=== PATIENT | female | born 1980 | race Caucasian/White ===

== ENCOUNTER 2017-07-31 02:18 | Inpatient (IN) | payer OTHER, MEDICAID ==
[~2017-07-31] VITALS: Ht 172.7 cm; Wt 103.0 kg
[~2017-07-31 02:18] MED LIST: ALPRAZOLAM 0.50.5 M1 PO; ALPRAZOLAM ER1 MG PO; ALPRAZOLAM2 MG PO; AMBIEN 10 MG TA10 MG PO; AMBIEN 5 MG TABL5 M1 PO; AMITRIPTYLINE H25 M2; AMITRIPTYLINE H25 M2 PO; AMITRIPTYLINE H50 M2 PO; APAP500; ATIVAN1 MG PO; CARAFATE 1 GM TA1 G1 PO; CARTRIDGE STAM1 EACH SQ; CIPRO250 M1 PO; CIPRO500 MG PO; CIPROFLOXACIN500 M1 PO; CLEOCIN HCL150 MG PO; CLEOCIN HCL300 MG PO; DEPAKOTE250 MG PO; DILAUDID 2 MG TA2 MG PO; DOCUSATE SODIU100 MG PO; E-MYCIN250 MG PO; FIFTY50 RESERV1 EACH MC; FLEXERIL PO; FLONASE 0.05%50 MCG NASAL; GUIATUSS AC SY120 ML PO; GUIATUSS100 MG/5 M PO; HUMALOG100 UNIT/1 SQ; HYDROCODON-ACE1 EAC5 PO; HYDROCODON-ACE1 EAC7 PO; HYDROCODONE-AP1 EAC2 PO; HYDROCODONE-AP1 EAC6 PO; Insulin Pump; KEFLEX500 MG PO; LANTUS; LANTUS SOL100 UNIT/1 SQ; LANTUS SQ; LANTUS SUBQ; LEVAQUIN 500 M500 M2 PO; LEVEMIR SUBQ; LEVEMIR100 UNIT/1 SUBQ; LEXAPRO20 MG PO; LYRICA 50 MG50 MG PO; MAG-OX 400 TAB400 M1 PO; MEDROLDOSEPACK PO; METRONIDAZOLE500 M4 PO; MULTI-VITAMIN1 EAC5 PO; MULTIVITAMINS PO; NEURONTIN 300300 M1 PO; NEXIUM40 MG PO; NICOTINE TRANSD14 M1 TRANSDERM; NICOTINE TRANSD21 M1 TD; NORCO 5-325 TA1 EAC1 PO; NORCO 5-325 TA1 EACH PO; NOVOLOG100 UNIT/1; NOVOLOG100 UNIT/1 SQ; NOVOLOG100 UNIT/1 SUBQ; NYSTATIN1 EAC9; OXYCODONE HCL 55 MG PO; PERCOCET 10-321 EACH PO; PERCOCET 5-3251 EACH PO; PERCOCET 7.5-31 EACH PO; PERCOCET PO; PHENADOZ25 MG RC; PHENERGAN 25 MG25 M1; PHENERGAN 25 MG25 M1 PO; PROMETHAZINE HC25 M1 PO; PROTONIX40 M1 PO; PROTONIX40 M2; PROTONIX40 M2 PO; REGLAN 10 MG TA10 M1 PO; REGLAN 10 MG TA10 MG PO; REGLAN 5 MG TAB5 M1 GT; ROBAXIN 750 MG750 M1 PO; TOPAMAX 25 MG T25 M1 PO; TRAMADOL 50 MG50 MG PO; TRANSDERM-SCO1 PATC1 TRANSDERM; TRANSDERM-SCO1 PATCH; ULTRAM 50MG TAB50 MG; ULTRAM 50MG TAB50 MG PO; VENTOLIN HFA 1818 GM INH; XANAX 0.5 MG0.5 MG PO; XANAX 1 MG TABLE1 MG PO; ZOFRAN ODT4 MG PO; ZOFRAN ODT4 MG SUBLING; ZOFRAN4 MG PO; ZOFRAN8 MG PO; ZOLOFT50 M1 PO
[2017-07-31] MEDS ORDERED: ONDANSETRON HCL4 M2 PO (02:24)
[2017-07-31 02:25] VITALS: BP 121/72
[2017-07-31 02:49] LABS: URINE BILIRUBIN NEGATIVE (Negative); URINE BLOOD NEGATIVE (Negative); URINE CLARITY SL CLOUDY; URINE COLOR YELLOW; URINE GLUCOSE-RANDOM 2+ (Negative); URINE KETONES 1+ (Negative); URINE LEUKOCYTES-REFLEX NEGATIVE (Negative); URINE NITRITE-REFLEX NEGATIVE (Negative); URINE PROTEIN NEGATIVE (Negative); URINE UROBILINOGEN 0.2 E.U./dl (0.2-1.0)
[2017-07-31 03:03] LABS: ABSOLUTE LYMPHOCYTES 1.6 thou/uL (0.8-5.3); ABSOLUTE MONOCYTES 0.7 thou/uL (0.0-1.2); ABSOLUTE NEUTROPHILS 8.8 thou/uL (1.6-8.1); BASOPHILS 0.2 %; EOSINOPHILS 0.2 %; HEMATOCRIT 45.8 % (37.0-47.0); HEMOGLOBIN 15.1 gm/dL (12.0-15.0); LYMPHOCYTES 14.2 %; MCH 30.9 pg (26.0-34.0); MCV 93.5 fL (80.0-100.0); MONOCYTES 6.1 %; MPV 9.1 fl. (7.2-11.1); NUCLEATED RBCS 0 /100WBC; PLATELET COUNT* 247 thou/uL (150-400); POLYS 79.3 %
[2017-07-31 03:07] LABS: CASTS None Seen /LPF (None Seen); SQUAMOUS >10 Many /LPF (0-3); URINE RBC 0-2 Rare /HPF (0-2); URINE WBC-REFLEX 0-5 Rare /HPF (0-5)
[2017-07-31 03:08] LABS: BACTERIA-REFLEX >30 Many /HPF (None Seen); CRYSTALS None Seen /LPF (None Seen)
[2017-07-31 03:15] LABS: CREATININE 1.9 mg/dL (0.6-1.3)
[2017-07-31 03:16] LABS: ALBUMIN 3.4 g/dL (3.4-5.0); TOTAL BILIRUBIN 1.1 mg/dL (<0.1-1.0)
[2017-07-31 03:18] LABS: CALCIUM 12.6 mg/dL (8.5-10.1)
[2017-07-31 04:02] LABS: AMP/METHAMP Negative (Negative); BARBITURATES Negative (Negative); BENZODIAZEPINES Negative (Negative); COCAINE Negative (Negative); METHADONE Negative (Negative); OPIATES Negative (Negative); PCP Negative (Negative); THC Negative (Negative)
[2017-07-31 05:18] VITALS: BP 115/75
[2017-07-31 07:13] LABS: HEMATOCRIT 45.3 % (37.0-47.0); HEMOGLOBIN 13.8 gm/dL (12.0-15.0); MCH 29.5 pg (26.0-34.0); MCHC 30.5 g/dL (28.0-37.0); MCV 96.7 fL (80.0-100.0); MPV 8.7 fl. (7.2-11.1); RBC 4.68 mil/uL (4.20-5.00); RDW-CV 14.6 % (10.5-14.5); WBC 8.3 thou/uL (4.0-11.0)
[2017-07-31 07:26] LABS: ALBUMIN 2.8 g/dL (3.4-5.0); CREATININE 1.5 mg/dL (0.6-1.3); POTASSIUM 3.5 mmol/L (3.5-5.1); TOTAL BILIRUBIN 0.6 mg/dL (<0.1-1.0); TOTAL PROTEIN 7.2 g/dL (6.4-8.2)
[2017-07-31 07:43] LABS: CALCIUM 11.3 mg/dL (8.5-10.1)
[2017-07-31 08:00] VITALS: BP 118/80
[2017-07-31 12:00] VITALS: BP 135/68
[2017-07-31 15:29] VITALS: BP 114/72
[2017-07-31 20:00] VITALS: BP 123/79
[2017-08-01] VITALS: BP 118/83
[2017-08-01 04:05] VITALS: BP 123/77
[2017-08-01 06:05] LABS: ALBUMIN 2.5 g/dL (3.4-5.0); CREATININE 1.5 mg/dL (0.6-1.3); MAGNESIUM 1.4 mg/dL (1.8-2.4); TOTAL BILIRUBIN 0.5 mg/dL (<0.1-1.0)
[2017-08-01 06:07] LABS: CALCIUM 8.5 mg/dL (8.5-10.1)
[2017-08-01 08:00] VITALS: BP 143/96
[2017-08-01 16:00] VITALS: BP 140/86
[2017-08-01 20:00] VITALS: BP 142/99
[2017-08-02] VITALS: BP 136/94
[2017-08-02 05:04] LABS: ABSOLUTE EOSINOPHILS 0.1 thou/uL (0.0-0.7); ABSOLUTE LYMPHOCYTES 2.8 thou/uL (0.8-5.3); ABSOLUTE MONOCYTES 0.5 thou/uL (0.0-1.2); ABSOLUTE NEUTROPHILS 3.2 thou/uL (1.6-8.1); BASOPHILS 0.6 %; EOSINOPHILS 1.6 %; HEMATOCRIT 37.7 % (37.0-47.0); HEMOGLOBIN 12.7 gm/dL (12.0-15.0); LYMPHOCYTES 41.6 %; MCH 31.2 pg (26.0-34.0); MCHC 33.6 g/dL (28.0-37.0); MCV 92.8 fL (80.0-100.0); MONOCYTES 7.9 %; MPV 8.3 fl. (7.2-11.1); NUCLEATED RBCS 0 /100WBC; PLATELET COUNT* 218 thou/uL (150-400); POLYS 48.3 %; RBC 4.06 mil/uL (4.20-5.00); RDW-CV 13.8 % (10.5-14.5); WBC 6.6 thou/uL (4.0-11.0)
[2017-08-02 05:27] LABS: ALBUMIN 2.8 g/dL (3.4-5.0); CALCIUM 9.2 mg/dL (8.5-10.1); CREATININE 1.2 mg/dL (0.6-1.3); TOTAL BILIRUBIN 0.4 mg/dL (<0.1-1.0); TOTAL PROTEIN 6.4 g/dL (6.4-8.2)
[2017-08-02 05:42] LABS: PREALBUMIN 21.2 mg/dL (18.0-35.7)
[2017-08-02 06:48] LABS: ESR (SEDRATE) 53 mm/hr (0-20)
[2017-08-02 08:00] VITALS: BP 141/99
[2017-08-02 11:27] VITALS: BP 140/96
--- NOTE | 2017-08-02 11:45 | EKG ---
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
[2017-08-02 16:00] VITALS: BP 128/99
[2017-08-02 20:00] VITALS: BP 123/76
[2017-08-03 04:00] VITALS: BP 155/96
[2017-08-03 07:07] LABS: GLYCOHEMOGLOBIN (HGB A1C) 10.7 % (4.8-5.6)
[2017-08-03] MEDS ORDERED: REGLAN 10 MG TA10 MG PO (07:53)
[2017-08-03] MEDS ORDERED: NEXIUM40 MG PO (07:53)
[2017-08-03] MEDS ORDERED: PHENERGAN 25 MG25 M1 PO (07:53)
[2017-08-03 08:00] VITALS: BP 142/95
--- NOTE | 2017-08-03 08:07 | CON ---
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 Morelia Lau. This is an addendum to job #[id number]. DISCUSSION: I have seen and examined the patient and agree with plan that has been outlined by our nurse practitioner, Trice Ponce. In addition to issues related to chronic acid reflux and plus or minus gastroparesis or tachygastria, the patient has had a couple of bouts of pancreatitis since we last saw her back in 2015. She states she was hospitalized at [facility] back in February 2017 and thinks that she may have undergone an endoscopic ultrasound, but it is unclear what was done. She states that there was "sludge" found on a study and that they recommended further care. In reviewing her records, she has undergone previous endoscopic ultrasound by Dr. Dozier in the past, which did not reveal any evidence for chronic pancreatitis, but she states that her most recent studies suggest that she may have these bouts of recurrent pancreatitis. When working her up back in 2016, she underwent MRCP, which was unremarkable and no other issues were going on at that time. There is always still the possibility she could have sphincter of Oddi dysfunction type 2 and may benefit from endoscopic biliary sphincterotomy, but with a nondilated bile duct, I would be hesitant to do that here. I think that we would eventually refer her back to Dr. Dozier for possible sphincter of Oddi dysfunction or even biliary sludge or microlithiasis in the common bile duct, but I would be hesitant to do any of that at this point at this facility. I am not aware with regards to her current need for proton pump inhibitor, this still may be necessary despite the fact that she has diabetes as she does not have any evidence for chronic kidney disease at this time. I am certainly aware that we need to protect her kidneys at all costs down the road with regards to her diabetes and control of her diabetes is of utmost need at this time. She has had bouts of DKA and poorly controlled diabetes and probably needs to be seen definitely by a subspecialist in Endocrinology. In any event, [place] [address] CONSULTATION Name: EVE LOVE Room: [address] IN .R.#: [id number] Admission: 07/31/17 Attend Phys: Morelia Lau MD Discharge: Date of : 84 Report #: [id number] proceed with upper endoscopy tomorrow and will make further recommendations for her regarding the same. <ELECTRONICALLY SIGNED> By: Kailash Borjas DO 08/03/17 0807 1842 2049Kailash Borjas DO /nt
--- NOTE | 2017-08-03 08:07 | CON ---
[address] [address] CONSULTATION Name: EVE LOVE Room: [address] IN ..#: [id number] Admission: 07/31/17 Attend Phys: Morelia Lau MD Discharge: Date of : 84 Report #: [id number] THIS REPORT FOR: //name// CC: Morelia Isbell DICTATED BY: Trice Ponce [facility] DATE OF SERVICE: 08/01/2017 Please note at the time of this dictation the patient was seen and physically examined by myself. REASON FOR CONSULTATION: Abdominal pain, nausea and vomiting. HISTORY OF PRESENT ILLNESS: This is a 37-year-old female who presented to the Emergency Room after ongoing nausea and vomiting with worsening of her gastroesophageal reflux disease in which she has been eating a ton of Tums and baking soda. She is having some epigastric discomfort as well as burning and up into her chest area. The patient was recently discharged from [facility] in which she was there from Saturday to of last week for a similar finding. They gave her some Zofran and Phenergan for her nausea, which did help initially and then sent her on her way. The patient did have an EGD back in 02/2016 that showed grade D esophagitis, small hiatal hernia. She did have a colonoscopy back in 2006, which was completely normal. She had an EUS back in 07/2016 that was completely normal with no evidence of any chronic pancreatitis. At that time, there were feeling that her pancreatitis back then may have been related to her insulin pump, which she has since gotten rid of. The patient states that her bowels move daily, soft and formed, without any problems. She does state that Protonix did help her in the past, but her PCP would not prescribe that to her afraid that it would cause kidney damage. She was told that she had gastroparesis in the past; however, in looking back, in 2015 she had a gastric emptying test that the first hour 79%, second hour 17 and third hour was at 2%, which was inconsistent with gastroparesis at that time. ALLERGIES: PENICILLIN, SULFA. MEDICATIONS: From home include Levemir, NovoLog, and Zofran. PAST MEDICAL HISTORY: Type 1 diabetes, bipolar, anxiety, depression, history of gastroparesis and a history of pancreatitis in the past. PAST SURGICAL HISTORY: Tonsillectomy, appendectomy, cholecystectomy, , nasal reconstruction, D [place] 2[place] [address] CONSULTATION Name: EVE LOVE Room: [address]#: [id number] Admission: 07/31/17 Attend Phys: Morelia Lau MD Discharge: Date of : 84 Report #: [id number] FAMILY HISTORY: Noncontributory. 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 She has been clean for now 2 years and 7 months. Denies any alcohol and tobacco use at this time. REVIEW OF SYSTEMS: Twelve-point review of systems is essentially negative except what is mentioned in the HPI. PHYSICAL EXAMINATION: VITAL SIGNS: Temperature 36.6, pulse 86, respirations 18, blood pressure 143/96. HEART: Regular rate and rhythm. LUNGS: Clear. ABDOMEN: Soft, positive bowel sounds in all 4 quadrants with no masses or tenderness noted except in the epigastric and then radiating up into the chest area. LABORATORY DATA: Hemoglobin 13.8, hematocrit 45.3, white count is 8.3, platelets 203. Sodium 135, potassium 4, chloride 100, CO2 of 26, BUN is 21, creatinine is 1.5, GFR is 40 and a glucose of 390, total bilirubin 0.5, alkaline phosphatase 153, ALT 50, AST 55. Abdominal x-ray was normal. IMPRESSION: 1. Abdominal pain. 2. Gastroesophageal reflux disease, worsening. Last esophagogastroduodenoscopy in 02/2016, grade D esophagitis. 3. Nausea and vomiting, improving. 4. Elevated liver function tests history. 5. Type 1 diabetes. PLAN: 1. EGD tomorrow with Dr. Cruz. 2. Further recommendations to be made once the procedure has been performed. Thank you for allowing us to participate in this patient's care. Please do not hesitate to call with any questions in regard to the consult. <ELECTRONICALLY SIGNED> By: Kailash Borjas DO 08/03/17 0807 1541 1854Kailash Borjas DO /nt
[2017-08-03] MEDS ORDERED: NOVOLOG100 UNIT/1 SUBQ (08:15)
[2017-08-03] MEDS ORDERED: NEEDLE1 EA11 SUBQ (08:15)
[2017-08-03] MEDS ORDERED: LEVEMIR SUBQ (08:15)
[2017-08-03 10:51] VITALS: BP 142/95
== END 2017-08-03 11:39 | disposition home or self-care (01) | DRG 74 ==
LOC: M.ERS 02:18 → M.TBA-ER 04:09 → M.2W 04:09
PROVIDERS: Emergency Medicine; Internal Medicine; Internal Medicine Gastroenterology; ADMIT Internal Medicine
PROC: 0DJ08ZZ Inspection of Upper Intestinal Tract, Via Natural or Artificial Opening Endoscopic (ICD-10-PCS; principal; 2017-08-02)
DX: E10.43 Type 1 diabetes mellitus with diabetic autonomic (poly)neuropathy (principal); F19.20 Other psychoactive substance dependence, uncomplicated; K21.0 Gastro-esophageal reflux disease with esophagitis; E86.0 Dehydration; F31.9 Bipolar disorder, unspecified; F41.9 Anxiety disorder, unspecified; F17.210 Nicotine dependence, cigarettes, uncomplicated; F12.90 Cannabis use, unspecified, uncomplicated; F14.90 Cocaine use, unspecified, uncomplicated; K31.84 Gastroparesis; E10.65 Type 1 diabetes mellitus with hyperglycemia; K59.09 Other constipation; K44.9 Diaphragmatic hernia without obstruction or gangrene; Z88.0 Allergy status to penicillin; Z88.2 Allergy status to sulfonamides; Z90.49 Acquired absence of other specified parts of digestive tract

== ENCOUNTER 2017-10-16 00:45 | Inpatient (IN) | payer OTHER, MEDICAID ==
[~2017-10-16] VITALS: Ht 172.7 cm; Wt 80.3 kg
[2017-10-16] VITALS (13 sets, daily range): BP systolic 125–149; BP diastolic 47–94
[~2017-10-16 00:45] MED LIST changes: +NEEDLE1 EA11 SUBQ; +ONDANSETRON HCL4 M2 PO
[2017-10-16 01:28] LABS: PCO2 < 17.0 mmHg (35.0-45.0)
[2017-10-16 01:29] LABS: HCO3 3.4 mmol/L (22.0-26.0)
[2017-10-16 01:36] LABS: AMP/METHAMP Negative (Negative); BARBITURATES Negative (Negative); BENZODIAZEPINES POSITIVE (Negative); COCAINE Negative (Negative); METHADONE Negative (Negative); OPIATES Negative (Negative); PCP Negative (Negative); THC POSITIVE (Negative)
[2017-10-16 01:37] LABS: URINE BILIRUBIN 1+ (Negative); URINE BLOOD TRACE (Negative); URINE CLARITY CLEAR; URINE COLOR STRAW; URINE GLUCOSE-RANDOM 2+ (Negative); URINE KETONES 3+ (Negative); URINE LEUKOCYTES-REFLEX NEGATIVE (Negative); URINE NITRITE-REFLEX NEGATIVE (Negative); URINE PROTEIN TRACE (Negative); URINE SPECIFIC GRAVITY 1.025 (1.005-1.030); URINE UROBILINOGEN 0.2 E.U./dl (0.2-1.0)
[2017-10-16 01:41] LABS: ICTOTEST (BILI CONFIRMATORY) Negative (Negative)
[2017-10-16 02:00] LABS: ABSOLUTE BASOPHILS 0.1 thou/uL (0.0-0.2); ABSOLUTE EOSINOPHILS 0.1 thou/uL (0.0-0.7); ABSOLUTE LYMPHOCYTES 4.4 thou/uL (0.8-5.3); ABSOLUTE MONOCYTES 0.6 thou/uL (0.0-1.2); ABSOLUTE NEUTROPHILS 10.2 thou/uL (1.6-8.1); BASOPHILS 0.5 %; EOSINOPHILS 0.6 %; HEMATOCRIT 49.9 % (37.0-47.0); HEMOGLOBIN 15.5 gm/dL (12.0-15.0); LYMPHOCYTES 28.8 %; MCH 31.8 pg (26.0-34.0); MCHC 31.1 g/dL (28.0-37.0); MCV 102.3 fL (80.0-100.0); MONOCYTES 3.6 %; MPV 9.3 fl. (7.2-11.1); NUCLEATED RBCS 0 /100WBC; PLATELET COUNT* 347 thou/uL (150-400); POLYS 66.5 %; RBC 4.88 mil/uL (4.20-5.00); WBC 15.3 thou/uL (4.0-11.0)
[2017-10-16 02:16] LABS: ALBUMIN 3.8 g/dL (3.4-5.0); ALKALINE PHOSPHATASE 227 U/L (46-116); BUN 26 mg/dL (7-18); CALCIUM 9.6 mg/dL (8.5-10.1); CHLORIDE 91 mmol/L (98-107); CREATININE 1.8 mg/dL (0.6-1.3); POTASSIUM 5.2 mmol/L (3.5-5.1); SGOT 71 U/L (15-37); SGPT 54 U/L (30-65); SODIUM 132 mmol/L (136-145); TOTAL BILIRUBIN 0.6 mg/dL (<0.1-1.0); TOTAL PROTEIN 8.7 g/dL (6.4-8.2)
[2017-10-16 02:41] LABS: ANION GAP 34 mmol/L (7-16)
[2017-10-16 02:43] LABS: CO2 7 mmol/L (21-32); GLUCOSE 781 mg/dL (70-99)
[2017-10-16 02:53] LABS: MAGNESIUM 2.1 mg/dL (1.8-2.4); PHOSPHORUS* 7.5 mg/dL (2.5-4.9); TROPONIN-I LEVEL <0.06 ng/mL (<0.06)
--- NOTE | 2017-10-16 05:32 | NUR ---
PATIENT LEFT UNIT ON STRETCHER WITH RN THAT WAS CARING FOR PAITIENT IN THE ER. ADMITTED TO ICU, NO REPORT GIVEN THE RN REMAINED WITH FRANKIE
[2017-10-16 05:47] LABS: BE -17.2 mmol/L (-2 to +3); PO2 106.8 mmHg (75.0-100.0)
[2017-10-16 05:52] LABS: pH 7.235 (7.340-7.450)
[2017-10-16 05:53] LABS: HCO3 7.9 mmol/L (22.0-26.0)
--- NOTE | 2017-10-16 07:26 | NUR ---
PATIENT ARRIVED ON UNIT AT 0330. PROCESSING MGR COMPLETED DOCUMENTED. FALL PATENT TO DEPENDENT DRAINAGE. ALL IV'S PRESENT ARE PATENT. VITAL SIGNS REMAIN STABLE AT THIS TIME. PATENT MORE ALERT THE SHIFT WENT BY, REQUESTING PAIN MEDICATION. EDUCATION DONE ON NPO STATUS. NO EMESIS NOTED, NO COMPLAINTS OF NAUSEA SINCE ADMISSIN TO UNIT. NO SKIN ISSUES. WILL CONTINUE TO MONITOR
[2017-10-16 09:46] LABS: CALCIUM 7.7 mg/dL (8.5-10.1); CREATININE 1.4 mg/dL (0.6-1.3)
[2017-10-16 09:49] LABS: ALBUMIN 3.2 g/dL (3.4-5.0)
[2017-10-16 09:51] LABS: POTASSIUM 3.2 mmol/L (3.5-5.1)
[2017-10-16 11:09] LABS: HEMATOCRIT 41.3 % (37.0-47.0)
[2017-10-16 12:26] LABS: BE -4.3 mmol/L (-2 to +3); HCO3 19.5 mmol/L (22.0-26.0); PCO2 32.3 mmHg (35.0-45.0); PO2 93.2 mmHg (75.0-100.0); pH 7.398 (7.340-7.450)
[2017-10-16 12:27] LABS: HEMATOCRIT 41.5 % (37.0-47.0); HEMOGLOBIN 14.1 gm/dL (12.0-15.0)
[2017-10-16 12:37] LABS: CALCIUM 8.1 mg/dL (8.5-10.1); CREATININE 1.2 mg/dL (0.6-1.3); POTASSIUM 3.2 mmol/L (3.5-5.1)
[2017-10-16 12:40] LABS: ALBUMIN 3.2 g/dL (3.4-5.0); PHOSPHORUS* 1.4 mg/dL (2.5-4.9)
--- NOTE | 2017-10-16 15:03 | EKG ---
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1980 Requested By: Temi Gil Order Number: [id number] Ronnell MD: Chuy Kidd Measurements Intervals [place] Rate: 122 P: 72 ND: 143 QRS: 63 QRSD: 98 T: -64 QT: 329 QTc: 469 Interpretive Statements Sinus tachycardia possible right atrial enlargement Nonspecific T abnormalities, inferior leads Borderline prolonged QT interval Compared to ECG 08/02/2017 08:29:13 T-wave abnormality now present Heart rate has increased right atrial enlargement suggested Electronically Signed On 10-16-2017 15:03:10 CDT by Chuy Kidd [email or web address] <ELECTRONICALLY SIGNED> By: Chuy Kidd MD, [facility] 10/16/17 1503 0108 0108 Chuy Kidd MD, [facility] /EPI
[2017-10-16 18:20] LABS: CALCIUM 8.1 mg/dL (8.5-10.1); CREATININE 0.9 mg/dL (0.6-1.3)
[2017-10-16 18:23] LABS: ALBUMIN 2.7 g/dL (3.4-5.0); PHOSPHORUS* 3.9 mg/dL (2.5-4.9)
[2017-10-16 18:35] LABS: POTASSIUM 4.5 mmol/L (3.5-5.1)
[2017-10-16 20:20] LABS: CALCIUM 8.1 mg/dL (8.5-10.1); CREATININE 1.3 mg/dL (0.6-1.3); POTASSIUM 3.8 mmol/L (3.5-5.1)
[2017-10-16 20:23] LABS: ALBUMIN 2.9 g/dL (3.4-5.0); MAGNESIUM 1.4 mg/dL (1.8-2.4); PHOSPHORUS* 1.3 mg/dL (2.5-4.9)
--- NOTE | 2017-10-17 00:08 | NUR ---
ASSUMED PATIENT CARE AT 1900. PATIENT ALERT AND ORIENTED TIMES FOUR. LABS REVIEWED AND DR NOTIFIED OF NORMALIZING RESULTS. NEW ORDERS RECEIVED. SPOKE TO PATIENT ABOUT SLIDING SCALE THAT SHE USES AT HOME. PATIENT STATED THAT WITH A BG LEVEL OF 179(HS LEVEL) THAT SHE WOULD ONLY DOSE 2U. PATIENT AND RN DISCUSSED AND GIVEN PATIENTS NPO STATUS THROUGHOUT THE DAY, PATIENT WAS MORE COMFORTABLE DOING JUST HER STANDARD LONG-ACING INSULIN DOSE OF 15U AND NOT DOING THE SLIDING SCALE. COATER SMOKING PIPE COMPLETED DOCUMENETED. NEW ORDERS PUT IN COMPUTER AND CARE PLAN UPDATED TO REFLECT THOSE ORDERS. PATIENT IS TELE SATUS AT THIS TIME
[2017-10-17 04:00] VITALS: BP 133/74
--- NOTE | 2017-10-17 05:34 | NUR ---
ASSUMED PATIENT CARE AT 1900. PATIENT ALERT AND ORIENTED TIMES FOUR. COMPLAINTS OF PAIN IN HER ABDOMEN. PAIN MEDICATION REQUESTED AND GIVEN Q2H. HAS BEEN EATING ICE CHIPS, SLIGHT TEMP FROM 10/16/17 IS DECREASING. CENTRAL LINE PATENT TO BLOOD DRAWS AND FLUSHES. NO QUESTIONS VERBALIZED AT THIS TIME. HOURLY ROUNDING COMPLETED.
[2017-10-17 06:09] LABS: ABSOLUTE LYMPHOCYTES 1.6 thou/uL (0.8-5.3); ABSOLUTE MONOCYTES 0.6 thou/uL (0.0-1.2); ABSOLUTE NEUTROPHILS 6.3 thou/uL (1.6-8.1); BASOPHILS 0.4 %; EOSINOPHILS 0.1 %; HEMATOCRIT 39.1 % (37.0-47.0); HEMOGLOBIN 13.2 gm/dL (12.0-15.0); LYMPHOCYTES 18.5 %; MCH 31.6 pg (26.0-34.0); MCHC 33.8 g/dL (28.0-37.0); MONOCYTES 7.2 %; MPV 8.6 fl. (7.2-11.1); NUCLEATED RBCS 0 /100WBC; POLYS 73.8 %; RBC 4.18 mil/uL (4.20-5.00); RDW-CV 13.7 % (10.5-14.5); WBC 8.6 thou/uL (4.0-11.0)
[2017-10-17 06:12] LABS: MCV 93.5 fL (80.0-100.0); PLATELET COUNT* 164 thou/uL (150-400)
[2017-10-17 06:28] LABS: ALBUMIN 2.7 g/dL (3.4-5.0); ALKALINE PHOSPHATASE 162 U/L (46-116); ANION GAP 9 mmol/L (7-16); BUN 17 mg/dL (7-18); CALCIUM 8.1 mg/dL (8.5-10.1); CHLORIDE 105 mmol/L (98-107); CO2 25 mmol/L (21-32); CREATININE 1.5 mg/dL (0.6-1.3); GLUCOSE 344 mg/dL (70-99); MAGNESIUM 1.5 mg/dL (1.8-2.4); PHOSPHORUS* 2.1 mg/dL (2.5-4.9); POTASSIUM 3.7 mmol/L (3.5-5.1); SGOT 39 U/L (15-37); SGPT 41 U/L (30-65); SODIUM 139 mmol/L (136-145); TOTAL BILIRUBIN 0.5 mg/dL (<0.1-1.0); TOTAL PROTEIN 6.4 g/dL (6.4-8.2)
[2017-10-17 08:00] VITALS: BP 146/89
[2017-10-17 10:27] VITALS: BP 133/74
--- NOTE | 2017-10-17 10:28 | NUR ---
SPOKE WITH PT. SHE IS ALERT AND ORIENTED, SAID SHE IS FEELING MUCH BETTER. SHE NORMALLY IS ACTIVE AND INDEP, LIVES AT HOME WITH HER SON. HER PARENTS LIVE NEARBY AND ASSIST NEEDED. HER PCP IS RADHA DA SILVA, HER UTILITY MECHANIC IS DR. CRABTREE AT [facility]. PT DENIES ANY DISCHARGE NEEDS. DISCUSSED ROLE OF CASE MGT, WILL CONTINUE TO FOLLOW.
[2017-10-17 12:00] VITALS: BP 136/81; BP 146/89
[2017-10-17 20:05] VITALS: BP 141/102
[2017-10-18 04:50] LABS: HEMATOCRIT 36.4 % (37.0-47.0); HEMOGLOBIN 12.2 gm/dL (12.0-15.0); MCH 31.9 pg (26.0-34.0); MCHC 33.7 g/dL (28.0-37.0); MCV 94.7 fL (80.0-100.0); MPV 9.2 fl. (7.2-11.1); RBC 3.84 mil/uL (4.20-5.00); RDW-CV 13.7 % (10.5-14.5); WBC 7.5 thou/uL (4.0-11.0)
[2017-10-18 05:09] LABS: CALCIUM 8.5 mg/dL (8.5-10.1); CREATININE 1.2 mg/dL (0.6-1.3)
[2017-10-18 05:16] LABS: POTASSIUM 2.7 mmol/L (3.5-5.1)
--- NOTE | 2017-10-18 05:17 | NUR ---
PT SLEPT AT INTERVALS DURING THE NIGHT, IV FLUIDS INFUSED, UP AD SHAHRZAD, FREQUENT PRN NAUSEA/PAIN MEDICATIONS, PLEASANT, CALL LIGHT IN REACH, WILL CONTINUE TO MONITOR
[2017-10-18 08:15] VITALS: BP 152/65
[2017-10-18] MEDS ORDERED: PROTONIX40 M1 PO (10:13)
[2017-10-18] MEDS ORDERED: REGLAN 10 MG TA10 MG PO (10:13)
[2017-10-18 13:45] VITALS: BP 133/74
--- NOTE | 2017-10-18 15:13 | NUR ---
PATIENT GIVEN INSULIN WITH MEALS WHEN REQUIRED. OK TO DISCHARGE IF TOLERATING FULL LIQUID DIET, PATIENT TOLERATING WITH NO DIFFICUTLY NOTED. PRN FENTANYL AND ZOFRAN GIVEN PER [facility] ORDERS FOR ABD PAIN AND NAUSEA. POTASSIUM 2.7 AND MG 1.6, POTASSIUM REPLACED IV 60MEQ PER PROTOCOL AND THEN PER DR. ALICIA ORDERED 60MEQ PO AND MAG 800MG PO. BOTH MEDICATIONS GIVEN PRIOR TO DC. PATIENT OK TO DISCHARGE AFTER GIVEN PER DR. ALICIA. CENTRAL LINE AND PERIPH IV X 2 DC'D PER PROTOCOL. VERBALIZES UNDERSTANDING OF PAPERWORK AND SCRIPT. PATIENT AMBULATED OUT WITH NURSING AND ALL BELONGINGS.
--- NOTE | 2017-10-20 09:20 | CON ---
[address] [address] CONSULTATION Name: EVE LOVE Room: [address]#: [id number] Admission: 10/16/17 Attend Phys: Tomas Ring MD Discharge: 10/18/17 Date of : 84 Report #: [id number] THIS REPORT FOR: //name// CC: Tomas Isbell [facility] DICTATED BY: Trice Ponce [facility] DATE OF SERVICE: 10/16/2017 Please note at the time of this dictation, the patient was seen and physically examined by myself. REASON FOR CONSULTATION: Hematemesis. HISTORY OF PRESENT ILLNESS: This is a 37-year-old female who is well known to our practice who was last seen by us back in first part of July for hematemesis. She underwent an EGD that showed grade C esophagitis, small hiatal hernia and she had a large amount of food that was still retained in her stomach. It was recommended she have a followup EGD in 2 months, which she has not done so. She states she has been taking her Reglan and Protonix twice a day since that time. Last evening, the patient had a new onset of nausea and vomiting that started around 7:00. She states around 1600 hours yesterday, she noted her blood sugar to be 547. She took an additional 20 units of insulin and then shortly thereafter at around 7:00, she started having bloody emesis, now it is bright red blood, but also coffee-ground and dark in appearance this morning which she has continued to vomit. She is also complaining of some epigastric pain as well. She denies any fever or chills. She denies taking any NSAID use at this time. She states her bowels have been moving fine without any problems that she has noted. It was also noted when she came in that her blood sugar was extremely elevated at 784 and it has come down to 322. ALLERGIES: INCLUDE PENICILLIN AND SULFA. MEDICATIONS: From home include Nexium b.i.d., metoclopramide before meals and at bedtime, Levemir, NovoLog. PAST MEDICAL HISTORY: Type 1 diabetes, bipolar, anxiety, depression, gastroparesis, history of chronic pancreatitis. PAST SURGICAL HISTORY: Tonsillectomy, appendectomy, cholecystectomy, , nasal reconstruction, D and C x 2. FAMILY HISTORY: [place] [address] CONSULTATION Name: MARGOEVE Brooks Room: [address]#: [id number] Admission: 10/16/17 Attend Phys: Tomas Ring MD Discharge: 10/18/17 Date of : 84 Report #: [id number] SOCIAL HISTORY: Used to smoke a pack a day. She does drink alcohol weekly. She denies any illegal drug use; however, she has been smoking marijuana and her urine drug screen was positive for marijuana and benzos and during her last admission in July, she states she was recovering addict from THC and Xanax and had been clean for 2 years and 7 months. REVIEW OF SYSTEMS: Twelve-point review of systems is essentially negative except what is mentioned in the HPI. PHYSICAL EXAMINATION: VITAL SIGNS: Temperature 37.3, pulse 114, respirations 25, blood pressure 126/54. HEART: Regular rate and rhythm. She is tachycardic. LUNGS: Diminished, but clear. ABDOMEN: Soft, positive bowel sounds in all 4 quadrants with some epigastric tenderness noted to palpation. LABORATORY DATA: Hemoglobin on admission was 15.5, second hemoglobin is pending, hematocrit 49.9, white count 15.3, platelets 347. Sodium 142, potassium 3.2, chloride 100, CO2 of 14, BUN is 19, creatinine is 1.4, GFR is 43 and glucose currently is 322. Total bilirubin 0.6, alkaline phosphatase 227, ALT 54, AST is 71. Urine drug screen positive for marijuana and benzos, negative for meth and alcohol. Chest x-ray negative. IMPRESSION: 1. Hematemesis. 2. Epigastric pain. 3. Gastroparesis. 4. Diabetic ketoacidosis. 5. History of grade C esophagitis in July, due now to check healing. 6. History of polysubstance abuse. PLAN: 1. EGD. 2. H and H now. 3. Continue Protonix IV. 4. Continue her Reglan. 5. Further recommendations to be made after the procedure has been performed. Thank you for allowing us to participate in this patient's care. Please do not hesitate to call with any questions in regard to this consult. <ELECTRONICALLY SIGNED> By: Robyn Cruz MD 10/20/17 0920 1056 Robyn Cruz MD /nt
--- NOTE | 2017-10-20 09:20 | CON ---
[address] [address] CONSULTATION Name: EVE LOVE Room: [address]R.#: [id number] Admission: 10/16/17 Attend Phys: Tomas Ring MD Discharge: 10/18/17 Date of : 84 Report #: [id number] THIS REPORT FOR: //name// CC: Tomas Martin DATE OF SERVICE: 10/16/2017 ADDENDUM I have personally seen and examined the patient and reviewed labs and imaging studies. The patient with history of severe esophagitis back in July, who presents with DKA and complains of epigastric pain and hematemesis. The hemoglobin appears stable at 14. The patient complains of pain, which is mainly in the upper part of her abdomen. We will continue Reglan as the patient has had history of gastroparesis. We will perform an upper endoscopy to further evaluate her upper gastrointestinal bleed. <ELECTRONICALLY SIGNED> By: Robyn Cruz MD 10/20/17 0920 1439 [id number] Cruz MD /nt
--- NOTE | 2017-10-28 08:10 | PATH ---
[address] [address] PATHOLOGY RPT PROCEDURE Name: GRETCHEN GUZMAN Room: [address] IN .R.#: [id number] Admission: 10/16/17 Date of : 84 Discharge: 10/18/17 Report #: [id number] Path Case #: [id number] [facility] Accession Number: [id number] . 01 Material submitted: . BIOPSY, DISTAL ESOPHAGUS . 01 Clinical history: . None provided . 02 Diagnosis: Squamous mucosa and submucosa (distal esophageal biopsy ulcer): - Ulceration with marked acute and chronic inflammation, granulation tissue and fibrosis. LBQ/10/17/2017 . 02 Comment: We find no evidence of high grade dysplasia or of malignancy. (NAVYAK:db; 10/17/2017) . 02 Electronically signed: . Jeferson Buchanan MD, Pathologist NPI- [id number] . 01 Gross description: . Received in formalin labeled "Gretchen Guzman, distal esophageal biopsy of ulcer," is a single segment of fountain soft tissue measuring 0.3 cm in maximum dimension. The specimen is entirely submitted in cassette A1. (TSD; 10/16/2017) TOB/TOB . 02 Pathologist provided ICD-10: K22.10, K20.9 . 02 CPT . 091472 Performed at: 01 [facility] [address] [place] [id number] MD Vin Guzman MD Phone: [phone] Performed at: [address] [id number] MD Jeferson Buchanan MD Phone: [phone]
== END 2017-10-18 14:45 | disposition home or self-care (01) | DRG 637 ==
LOC: M.ERS 00:45 → M.ICU 02:22 → M.TBA-ER 02:22 → M.ICU 03:42 → M.3W 10-17 18:45
PROVIDERS: Nurse Practitioner Adult Health; Personal Emergency Response Attendant; ADMIT Internal Medicine
PROC: 02HV33Z Insertion of Infusion Device into Superior Vena Cava, Percutaneous Approach (ICD-10-PCS; principal; 2017-10-16)
PROC: 0DB58ZX Excision of Esophagus, Via Natural or Artificial Opening Endoscopic, Diagnostic (ICD-10-PCS; principal; 2017-10-16)
DX: E10.10 Type 1 diabetes mellitus with ketoacidosis without coma (principal); K29.71 Gastritis, unspecified, with bleeding; N17.0 Acute kidney failure with tubular necrosis; K86.1 Other chronic pancreatitis; E87.2 Acidosis; E10.65 Type 1 diabetes mellitus with hyperglycemia; F31.9 Bipolar disorder, unspecified; F41.9 Anxiety disorder, unspecified; F12.10 Cannabis abuse, uncomplicated; E10.43 Type 1 diabetes mellitus with diabetic autonomic (poly)neuropathy; K31.84 Gastroparesis; K21.0 Gastro-esophageal reflux disease with esophagitis; K44.9 Diaphragmatic hernia without obstruction or gangrene; Z90.49 Acquired absence of other specified parts of digestive tract; Z98.891 History of uterine scar from previous surgery; Z79.4 Long term (current) use of insulin; Z87.891 Personal history of nicotine dependence; Z79.899 Other long term (current) drug therapy; Z88.0 Allergy status to penicillin; Z88.2 Allergy status to sulfonamides

== ENCOUNTER 2017-11-22 10:49 | Inpatient (IN) | payer OTHER, MEDICAID ==
[~2017-11-22] VITALS: Ht 172.7 cm; Wt 76.4 kg
--- NOTE | ~2017-11-22 | PROC ---
[address] [address] PROCEDURE REPORT Name: EVE LOVE Room: [address] IN .R.#: [id number] Admission: 11/22/17 Attend Phys: Kin Cisneros MD Discharge: 11/26/17 Date of : 84 Report #: [id number] THIS REPORT FOR: //name// For GI report, please see the Provation report in Perceptive 7 content. By: 0645Medical Records Staff JULIEN /LATANYA
[2017-11-22 11:38] LABS: ABSOLUTE LYMPHOCYTES 2.3 thou/uL (0.8-5.3); ABSOLUTE MONOCYTES 0.5 thou/uL (0.0-1.2); ABSOLUTE NEUTROPHILS 12.4 thou/uL (1.6-8.1); BASOPHILS 0.3 %; EOSINOPHILS 0.1 %; HEMOGLOBIN 14.8 gm/dL (12.0-15.0); LYMPHOCYTES 15.3 %; MCH 32.3 pg (26.0-34.0); MCHC 30.8 g/dL (28.0-37.0); MPV 10.4 fl. (7.2-11.1); NUCLEATED RBCS 0 /100WBC; PLATELET COUNT* 309 thou/uL (150-400); POLYS 81.3 %; RBC 4.57 mil/uL (4.20-5.00); RDW-CV 15.7 % (10.5-14.5); WBC 15.3 thou/uL (4.0-11.0)
[2017-11-22 11:42] LABS: BE -15.8 mmol/L (-2 to +3); HCO3 8.2 mmol/L (22.0-26.0); PCO2 17.9 mmHg (35.0-45.0); PO2 124.1 mmHg (75.0-100.0)
[2017-11-22 12:17] LABS: BUN 31 mg/dL (7-18); CALCIUM 10.9 mg/dL (8.5-10.1); CHLORIDE 82 mmol/L (98-107); CREATININE 2.4 mg/dL (0.6-1.3); POTASSIUM 5.3 mmol/L (3.5-5.1); SODIUM 131 mmol/L (136-145)
[2017-11-22 12:21] LABS: ALBUMIN 3.8 g/dL (3.4-5.0); ALKALINE PHOSPHATASE 199 U/L (46-116); LIPASE 617 U/L (73-393); MAGNESIUM 1.6 mg/dL (1.8-2.4); PHOSPHORUS* 9.7 mg/dL (2.5-4.9); SGOT 39 U/L (15-37); SGPT 25 U/L (30-65); TOTAL BILIRUBIN 0.8 mg/dL (<0.1-1.0); TOTAL PROTEIN 7.9 g/dL (6.4-8.2)
[2017-11-22 12:35] LABS: ANION GAP 39 mmol/L (7-16)
[2017-11-22 12:36] LABS: CO2 10 mmol/L (21-32); GLUCOSE 1018 mg/dL (70-99)
[2017-11-22 12:56] VITALS: BP 115/58
[2017-11-22 16:15] LABS: URINE BLOOD NEGATIVE (Negative); URINE CLARITY CLEAR; URINE COLOR YELLOW; URINE GLUCOSE-RANDOM 3+ (Negative); URINE LEUKOCYTES-REFLEX NEGATIVE (Negative); URINE NITRITE-REFLEX NEGATIVE (Negative); URINE PROTEIN TRACE (Negative); URINE UROBILINOGEN 0.2 E.U./dl (0.2-1.0)
[2017-11-22 16:16] LABS: ICTOTEST (BILI CONFIRMATORY) Negative (Negative); URINE BILIRUBIN 2+ (Negative); URINE KETONES 3+ (Negative)
[2017-11-22 16:22] LABS: AMP/METHAMP Negative (Negative); BARBITURATES Negative (Negative); BENZODIAZEPINES POSITIVE (Negative); COCAINE Negative (Negative); METHADONE Negative (Negative); OPIATES Negative (Negative); PCP Negative (Negative); THC POSITIVE (Negative)
--- NOTE | 2017-11-22 16:34 | EKG ---
[place] [address] ELECTROCARDIOGRAM REPORT Name: EVE LOVE Room: [address] IN M.R.#: [id number] Admission: 11/22/17 Attend Phys: Kin Cisneros MD Discharge: Date of : 84 Report #: [id number] THIS REPORT FOR: //name// [facility] ED Test Date: 2017-11-22 Test Time: 11:45:06 Pat Name: EVE LOVE Department: Room: 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1980 Requested By: Isaías Briceno Order Number: [id number] MD: Avery Craig Measurements Intervals [place] Rate: 142 P: 79 ND: 135 QRS: 78 QRSD: 94 T: -40 QT: 285 QTc: 438 Interpretive Statements Sinus tachycardia Probable left atrial enlargement Nonspecific T abnormalities, inferior leads Baseline wander in lead(s) V1 Compared to ECG 10/16/2017 01:08:25 No significant changes Electronically Signed On 11-22-2017 16:34:05 CDT by Avery Craig [email or web address] <ELECTRONICALLY SIGNED> By: Avery Craig MD, FACC 11/22/17 1634 1145 1145 Avery Craig MD, [facility] /EPI
[2017-11-22 17:42] LABS: ALBUMIN 2.9 g/dL (3.4-5.0); MAGNESIUM 1.3 mg/dL (1.8-2.4)
[2017-11-22 17:43] LABS: PHOSPHORUS* 1.8 mg/dL (2.5-4.9)
[2017-11-22 17:46] LABS: CALCIUM 8.4 mg/dL (8.5-10.1); POTASSIUM 3.6 mmol/L (3.5-5.1)
[2017-11-22 19:00] VITALS: BP 98/57
[2017-11-22 20:00] VITALS: BP 108/63
[2017-11-22 20:30] LABS: CALCIUM 8.1 mg/dL (8.5-10.1); CREATININE 1.7 mg/dL (0.6-1.3); MAGNESIUM 1.4 mg/dL (1.8-2.4)
[2017-11-22 21:00] VITALS: BP 112/61
[2017-11-22 22:00] VITALS: BP 135/86
[2017-11-22 23:00] VITALS: BP 117/70
[2017-11-23] VITALS (11 sets, daily range): BP systolic 90–141; BP diastolic 51–90
[2017-11-23 00:46] LABS: ALBUMIN 2.7 g/dL (3.4-5.0); CALCIUM 7.5 mg/dL (8.5-10.1); CREATININE 1.6 mg/dL (0.6-1.3); MAGNESIUM 2.5 mg/dL (1.8-2.4); PHOSPHORUS* 4.9 mg/dL (2.5-4.9); POTASSIUM 3.9 mmol/L (3.5-5.1)
[2017-11-23 04:22] LABS: ABSOLUTE LYMPHOCYTES 1.8 thou/uL (0.8-5.3); ABSOLUTE NEUTROPHILS 10.2 thou/uL (1.6-8.1); BASOPHILS 0.3 %; LYMPHOCYTES 14.1 %; MCH 32.3 pg (26.0-34.0); MCHC 33.3 g/dL (28.0-37.0); MONOCYTES 7.6 %; MPV 8.6 fl. (7.2-11.1); NUCLEATED RBCS 0 /100WBC; RBC 3.51 mil/uL (4.20-5.00); RDW-CV 14.6 % (10.5-14.5); WBC 13.1 thou/uL (4.0-11.0)
[2017-11-23 04:40] LABS: HEMOGLOBIN 11.3 gm/dL (12.0-15.0); MCV 96.8 fL (80.0-100.0); PLATELET COUNT* 208 thou/uL (150-400)
[2017-11-23 04:41] LABS: ALBUMIN 2.8 g/dL (3.4-5.0); CALCIUM 7.8 mg/dL (8.5-10.1); CREATININE 1.5 mg/dL (0.6-1.3); MAGNESIUM 2.5 mg/dL (1.8-2.4); PHOSPHORUS* 2.3 mg/dL (2.5-4.9); POTASSIUM 3.6 mmol/L (3.5-5.1)
[2017-11-23 19:11] LABS: GLYCOHEMOGLOBIN (HGB A1C) 11.4 % (4.8-5.6)
[2017-11-24] VITALS (8 sets, daily range): BP systolic 107–163; BP diastolic 62–99
[2017-11-24 04:19] LABS: ABSOLUTE LYMPHOCYTES 2.2 thou/uL (0.8-5.3); ABSOLUTE MONOCYTES 0.7 thou/uL (0.0-1.2); ABSOLUTE NEUTROPHILS 4.9 thou/uL (1.6-8.1); BASOPHILS 0.5 %; EOSINOPHILS 0.5 %; HEMATOCRIT 32.5 % (37.0-47.0); HEMOGLOBIN 11.1 gm/dL (12.0-15.0); LYMPHOCYTES 28.2 %; MCH 32.7 pg (26.0-34.0); MCHC 34.1 g/dL (28.0-37.0); MCV 95.6 fL (80.0-100.0); MONOCYTES 8.7 %; MPV 8.5 fl. (7.2-11.1); NUCLEATED RBCS 0 /100WBC; PLATELET COUNT* 135 thou/uL (150-400); POLYS 62.1 %; RBC 3.39 mil/uL (4.20-5.00); RDW-CV 14.3 % (10.5-14.5); WBC 7.9 thou/uL (4.0-11.0)
[2017-11-24 04:32] LABS: ALBUMIN 2.4 g/dL (3.4-5.0); CALCIUM 7.5 mg/dL (8.5-10.1); CREATININE 0.9 mg/dL (0.6-1.3); TOTAL BILIRUBIN 0.3 mg/dL (<0.1-1.0); TOTAL PROTEIN 5.4 g/dL (6.4-8.2)
[2017-11-24 04:46] LABS: POTASSIUM 2.8 mmol/L (3.5-5.1)
[2017-11-25 00:22] VITALS: BP 143/83
[2017-11-25 04:00] VITALS: BP 144/95
[2017-11-25 04:28] LABS: ABSOLUTE LYMPHOCYTES 2.3 thou/uL (0.8-5.3); ABSOLUTE MONOCYTES 0.4 thou/uL (0.0-1.2); ABSOLUTE NEUTROPHILS 2.3 thou/uL (1.6-8.1); BASOPHILS 0.4 %; EOSINOPHILS 0.8 %; HEMATOCRIT 32.1 % (37.0-47.0); HEMOGLOBIN 10.8 gm/dL (12.0-15.0); LYMPHOCYTES 45.4 %; MCH 32.5 pg (26.0-34.0); MCHC 33.5 g/dL (28.0-37.0); MCV 96.9 fL (80.0-100.0); MONOCYTES 7.2 %; MPV 9.6 fl. (7.2-11.1); NUCLEATED RBCS 0 /100WBC; PLATELET COUNT* 124 thou/uL (150-400); POLYS 46.2 %; RBC 3.32 mil/uL (4.20-5.00); RDW-CV 14.1 % (10.5-14.5)
[2017-11-25 04:42] LABS: ALBUMIN 2.3 g/dL (3.4-5.0); CALCIUM 7.7 mg/dL (8.5-10.1); CREATININE 0.7 mg/dL (0.6-1.3); POTASSIUM 3.5 mmol/L (3.5-5.1); TOTAL BILIRUBIN 0.4 mg/dL (<0.1-1.0); TOTAL PROTEIN 5.4 g/dL (6.4-8.2)
[2017-11-25 08:50] VITALS: BP 136/72
[2017-11-25 14:02] LABS: PROTIME 9.3 Seconds (9.20-11.50)
--- NOTE | 2017-11-25 14:17 | EKG ---
[place] [address] ELECTROCARDIOGRAM REPORT Name: EVE LOVE Room: [address] ADM IN .R.#: [id number] Admission: 11/22/17 Attend Phys: Kin Cisneros MD Discharge: Date of : 84 Report #: [id number] THIS REPORT FOR: //name// 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
[2017-11-25 16:00] VITALS: BP 152/114
[2017-11-26 00:06] VITALS: BP 119/75
[2017-11-26 05:39] LABS: ABSOLUTE EOSINOPHILS 0.1 thou/uL (0.0-0.7); ABSOLUTE LYMPHOCYTES 2.9 thou/uL (0.8-5.3); ABSOLUTE MONOCYTES 0.3 thou/uL (0.0-1.2); ABSOLUTE NEUTROPHILS 1.8 thou/uL (1.6-8.1); BASOPHILS 0.7 %; EOSINOPHILS 1.5 %; HEMATOCRIT 33.5 % (37.0-47.0); HEMOGLOBIN 11.4 gm/dL (12.0-15.0); MCH 32.6 pg (26.0-34.0); MCV 95.8 fL (80.0-100.0); MONOCYTES 5.9 %; NUCLEATED RBCS 0 /100WBC; PLATELET COUNT* 148 thou/uL (150-400); POLYS 35.9 %; RDW-CV 13.9 % (10.5-14.5); WBC 5.1 thou/uL (4.0-11.0)
[2017-11-26 05:50] LABS: ALBUMIN 2.4 g/dL (3.4-5.0); CALCIUM 8.1 mg/dL (8.5-10.1); CREATININE 0.6 mg/dL (0.6-1.3); POTASSIUM 3.5 mmol/L (3.5-5.1); TOTAL BILIRUBIN 0.4 mg/dL (<0.1-1.0); TOTAL PROTEIN 5.8 g/dL (6.4-8.2)
[2017-11-26 08:15] VITALS: BP 135/85
[2017-11-26 09:34] VITALS: BP 135/85
[2017-11-26 10:35] VITALS: BP 135/85
[2017-11-26 11:06] VITALS: BP 135/85
[2017-11-26] MEDS ORDERED: CARAFATE 1 GM TA1 G1 PO (14:05)
--- NOTE | 2017-11-29 16:52 | CON ---
[address] [address] CONSULTATION Name: EVE LOVE Room: [address] IN M.R.#: [id number] Admission: 11/22/17 Attend Phys: Kin Cisneros MD Discharge: 11/26/17 Date of : 84 Report #: [id number] THIS REPORT FOR: //name// CC: Kin Isbell [employer] DICTATED BY: Trice Ponce [facility] DATE OF SERVICE: 11/25/2017 Please note at the time of this dictation, the patient was seen and physically examined by myself. REASON FOR CONSULTATION: Nausea and vomiting, abdominal pain. HISTORY OF PRESENT ILLNESS: This is a 37-year-old female who is well known to us who was recently seen in September of this year, 10/16/2017 for similar nausea, vomiting and underwent an EGD and at that time, her EGD showed grade D esophagitis. She also then saw Dr. Tasia hull at [facility] later on in the month and underwent an ERCP stating that her Pap level was normal and did a sphincterotomy and he placed a plastic stent, which she states that she had x-rays done while she was still over there and it had fallen out and a cholangiogram done at that time was normal. The patient states that she was doing relatively well up until about 2 weeks ago. She saw her PCP and she stopped her off her Reglan secondary to, she says "kidney problems." Over the last week, the patient states that she has not been feeling well with worsening nausea and vomiting. She states she did take 2 Aleve about a week ago for her migraine. The patient describes a complete burning and difficulty and painful swallowing from her mid sternum down to her epigastric area. She states with the nausea and vomiting, she has also noted some bright red blood as well. The patient again tested positive for benzos and THC. ALLERGIES: PENICILLIN AND SULFA. MEDICATIONS: From home include pantoprazole b.i.d., insulin NovoLog and Levemir. PAST MEDICAL HISTORY: Type 1 diabetes, bipolar, anxiety, depression, gastroparesis, history of pancreatitis, cyclic vomiting. Last EGD in 09/2017, grade D esophagitis. PAST SURGICAL HISTORY: Appendectomy, cholecystectomy and . FAMILY HISTORY: [place] [address] CONSULTATION Name: EVE LOVE Room: [address]#: [id number] Admission: 11/22/17 Attend Phys: Kin Cisneros MD Discharge: 11/26/17 Date of : 84 Report #: [id number] SOCIAL HISTORY: Continues to smoke cigarettes about a pack a day. She does use alcohol weekly. She does state that she smokes a joint a day. REVIEW OF SYSTEMS: Twelve-point review of systems is essentially negative except what is mentioned in the HPI. PHYSICAL EXAMINATION: VITAL SIGNS: Temperature 36.8, pulse 77, respirations 20, blood pressure 136/72. HEART: Regular rate and rhythm. LUNGS: Clear. ABDOMEN: Soft, positive bowel sounds in all 4 quadrants with tenderness in the epigastric and sternal area. LABORATORY DATA: Hemoglobin back in September was 14, she is 10.8, hematocrit 32.1, white count is 5, and platelets are 124. Sodium 138, potassium 3.5, chloride 104, CO2 of 28, BUN is 9, creatinine 0.7, GFR is 95, glucose is 255. Total bilirubin has been normal back in September and now 0.4; alkaline phosphatase in September was 227, she is now 298; ALT in September was 54, on admission she was 53, she has bumped up to 172; AST in September was 71, on admission she was 39, and she has bumped up to 353. She did again test positive for benzos and THC on her urine drug screen. CT pending abdomen and pelvis. IMPRESSION: 1. Nausea and vomiting. History of grade D esophagitis in September EGD, 10/16/2017. 2. Odynophagia. 3. Hematemesis. 4. Elevated liver function tests. 5. Thrombocytopenia. 6. History of gastroparesis. 7. History of . 8. History of polysubstance abuse. PLAN: 1. CT of the abdomen and pelvis still pending today. 2. EGD tomorrow to further evaluate her odynophagia and hematemesis. 3. We will switch her Protonix to IV b.i.d. 4. Restart her Reglan. 5. We will check PT/INR. 6. Further recommendations to be made after Dr. Cruz sees her later today. Thank you for allowing us to participate in this patient's care. Please do not hesitate to call with any questions in regard to this consult. ADDENDUM [address] [address] CONSULTATION Name: EVE LOVE Room: [address]#: [id number] Admission: 11/22/17 Attend Phys: Kin Cisneros MD Discharge: 11/26/17 Date of : 84 Report #: [id number] I have personally seen and examined the patient who is well known to me as we had performed the upper endoscopy in September and found that the patient had grade D esophagitis. She also had elevated LFTs and history of gastroparesis. She presents with DKA and persistent nausea and vomiting. She admits to using marijuana. CT of abdomen and pelvis was obtained, which is essentially negative for any acute processes. We will perform our upper endoscopy to further evaluate her esophagus and history of grade D esophagitis. Meanwhile, we will manage her nausea and vomiting. <ELECTRONICALLY SIGNED> By: Robyn Cruz MD 11/29/17 1652 1258 1929Robyn Cruz MD /nt
--- NOTE | 2017-11-30 09:07 | PATH ---
[address] [address] PATHOLOGY RPT PROCEDURE Name: GRETCHEN GUZMAN Room: [address] IN M.R.#: [id number] Admission: 11/22/17 Date of : 84 Discharge: 11/26/17 Report #: [id number] Path Case #: [id number] [facility] Accession Number: [id number] . 01 Material submitted: . ESOPHAGEAL BIOPSY R/O BARRETTS . 01 Clinical history: . None provided . 02 Diagnosis: Esophageal biopsy: - Benign esophageal and gastric / columnar types mucosa with moderate chronic and active inflammation compatible with reflux, negative for goblet cells / diagnostic Montejo's metaplasia, granulomas and dysplasia. . (ANIBAL:mmkay; 11/27/17) [facility]/11/27/2017 . 02 Electronically signed: . Bubba Red MD, Pathologist NPI- [id number] . 01 Gross description: . Received in formalin labeled "Gretchen Guzman, esophageal BX, rule out Monetjo's," is a single segment of fountain soft tissue measuring 0.3 cm in maximum dimension. The specimen is entirely submitted in cassette A1. (TSD; 11/26/2017) TOB/TOB . 02 Pathologist provided ICD-10: K21.0 . 02 CPT . 754559 Performed at: [address], [place] [id number] MD Vin Guzman MD Phone: [phone] Performed at: 02 [facility] [address], [place], [place] [id number] MD Bubba Red MD Phone: [phone]
== END 2017-11-26 15:24 | disposition home or self-care (01) | DRG 682 ==
LOC: M.ERS 10:49 → M.ICU 12:11 → M.TBA-ER 12:11 → M.ICU 13:05 → M.3W 11-24 10:58
PROVIDERS: Emergency Medicine; Nurse Practitioner Adult Health; ADMIT Internal Medicine
PROC: 02HV33Z Insertion of Infusion Device into Superior Vena Cava, Percutaneous Approach (ICD-10-PCS; principal; 2017-11-22)
PROC: B548ZZA Ultrasonography of Superior Vena Cava, Guidance (ICD-10-PCS; principal; 2017-11-22)
PROC: 0DB38ZX Excision of Lower Esophagus, Via Natural or Artificial Opening Endoscopic, Diagnostic (ICD-10-PCS; 2017-11-26)
PROC: 0DB98ZX Excision of Duodenum, Via Natural or Artificial Opening Endoscopic, Diagnostic (ICD-10-PCS; 2017-11-26)
DX: N17.9 Acute kidney failure, unspecified (principal); E10.10 Type 1 diabetes mellitus with ketoacidosis without coma; G93.40 Encephalopathy, unspecified; K92.0 Hematemesis; E86.0 Dehydration; G43.A0 Cyclical vomiting, in migraine, not intractable; K21.0 Gastro-esophageal reflux disease with esophagitis; K44.9 Diaphragmatic hernia without obstruction or gangrene; E10.43 Type 1 diabetes mellitus with diabetic autonomic (poly)neuropathy; R79.89 Other specified abnormal findings of blood chemistry; D69.6 Thrombocytopenia, unspecified; F17.210 Nicotine dependence, cigarettes, uncomplicated; K31.84 Gastroparesis; Z79.4 Long term (current) use of insulin; Z88.0 Allergy status to penicillin; Z88.2 Allergy status to sulfonamides; Z79.899 Other long term (current) drug therapy; Z90.49 Acquired absence of other specified parts of digestive tract; Z90.710 Acquired absence of both cervix and uterus; Z82.3 Family history of stroke

== ENCOUNTER 2017-12-05 23:25 | Inpatient (IN) | payer OTHER, MEDICAID ==
[~2017-12-05] VITALS: Ht 172.7 cm; Wt 88.4 kg
[2017-12-05 23:39] VITALS: BP 140/94
[2017-12-06 00:10] LABS: ABSOLUTE BASOPHILS 0.1 thou/uL (0.0-0.2); ABSOLUTE EOSINOPHILS 0.1 thou/uL (0.0-0.7); ABSOLUTE LYMPHOCYTES 5.1 thou/uL (0.8-5.3); ABSOLUTE MONOCYTES 0.9 thou/uL (0.0-1.2); ABSOLUTE NEUTROPHILS 6.1 thou/uL (1.6-8.1); BASOPHILS 0.6 %; EOSINOPHILS 1.2 %; HEMATOCRIT 39.8 % (37.0-47.0); HEMOGLOBIN 13.2 gm/dL (12.0-15.0); LYMPHOCYTES 41.7 %; MCH 32.7 pg (26.0-34.0); MCHC 33.2 g/dL (28.0-37.0); MCV 98.5 fL (80.0-100.0); MPV 9.4 fl. (7.2-11.1); NUCLEATED RBCS 0 /100WBC; POLYS 49.5 %; RBC 4.04 mil/uL (4.20-5.00); RDW-CV 15.2 % (10.5-14.5); WBC 12.3 thou/uL (4.0-11.0)
[2017-12-06] MEDS ORDERED: VALIUM5 MG PO (00:38)
[2017-12-06 00:41] LABS: ANION GAP 9 mmol/L (7-16); BUN 27 mg/dL (7-18); CALCIUM 8.9 mg/dL (8.5-10.1); CHLORIDE 101 mmol/L (98-107); CO2 26 mmol/L (21-32); GLUCOSE 138 mg/dL (70-99); POTASSIUM 4.8 mmol/L (3.5-5.1); SODIUM 136 mmol/L (136-145)
[2017-12-06 00:48] LABS: ALBUMIN 3.2 g/dL (3.4-5.0); ALKALINE PHOSPHATASE 162 U/L (46-116); LIPASE 332 U/L (73-393); SGOT 33 U/L (15-37); SGPT 32 U/L (30-65); TOTAL BILIRUBIN 0.2 mg/dL (<0.1-1.0); TROPONIN-I LEVEL <0.06 ng/mL (<0.06)
[2017-12-06 01:00] LABS: TOTAL PROTEIN 6.4 g/dL (6.4-8.2)
[2017-12-06 01:06] LABS: CLUMPED PLTS OCCASIONAL; PLATELET ESTIMATE ADEQUATE
[2017-12-06 01:14] LABS: PLATELET COUNT* 181 thou/uL (150-400)
[2017-12-06 03:15] VITALS: BP 120/71
[2017-12-06 03:30] VITALS: BP 123/91
[2017-12-06 08:00] VITALS: BP 108/57
--- NOTE | 2017-12-06 10:48 | EKG ---
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1980 Requested By: Josiah Puckett Order Number: [id number] MD: Korey Wang Measurements Intervals [place] Rate: 111 P: 54 NH: 143 QRS: 59 QRSD: 87 T: 15 QT: 328 QTc: 446 Interpretive Statements Sinus tachycardia Compared to ECG 11/24/2017 21:30:01 Sinus rhythm no longer present Myocardial infarct finding no longer present Electronically Signed On 12-06-2017 10:48:04 CDT by Korey Wang [email or web address] <ELECTRONICALLY SIGNED> By: Korey Wang MD, [facility] 12/06/17 1048 0013 0013 Korey Wang MD, [facility] /EPI
[2017-12-06 16:03] VITALS: BP 106/62
[2017-12-06 20:00] VITALS: BP 111/71
[2017-12-07] VITALS: BP 116/71
[2017-12-07 04:00] VITALS: BP 114/80
[2017-12-07 07:30] VITALS: BP 125/78
[2017-12-07 09:16] LABS: URINE BILIRUBIN NEGATIVE (Negative); URINE BLOOD NEGATIVE (Negative); URINE CLARITY CLEAR; URINE COLOR YELLOW; URINE GLUCOSE-RANDOM 3+ (Negative); URINE KETONES 2+ (Negative); URINE LEUKOCYTES-REFLEX NEGATIVE (Negative); URINE NITRITE-REFLEX NEGATIVE (Negative); URINE PROTEIN NEGATIVE (Negative); URINE SPECIFIC GRAVITY 1.015 (1.005-1.030); URINE UROBILINOGEN 0.2 E.U./dl (0.2-1.0)
[2017-12-07 12:33] VITALS: BP 141/94
[2017-12-07 18:16] VITALS: BP 116/74
[2017-12-07 20:00] VITALS: BP 115/68
[2017-12-08] VITALS (7 sets, daily range): BP systolic 98–132; BP diastolic 53–88
[2017-12-08 04:53] LABS: ABSOLUTE EOSINOPHILS 0.1 thou/uL (0.0-0.7); ABSOLUTE LYMPHOCYTES 2.6 thou/uL (0.8-5.3); ABSOLUTE MONOCYTES 0.5 thou/uL (0.0-1.2); BASOPHILS 0.5 %; EOSINOPHILS 1.2 %; HEMATOCRIT 33.2 % (37.0-47.0); LYMPHOCYTES 41.4 %; MCHC 33.2 g/dL (28.0-37.0); MCV 99.4 fL (80.0-100.0); MONOCYTES 7.7 %; NUCLEATED RBCS 0 /100WBC; PLATELET COUNT* 182 thou/uL (150-400); POLYS 49.2 %; RBC 3.34 mil/uL (4.20-5.00); RDW-CV 14.6 % (10.5-14.5); WBC 6.2 thou/uL (4.0-11.0)
[2017-12-08 05:37] LABS: CALCIUM 8.3 mg/dL (8.5-10.1); CREATININE 0.9 mg/dL (0.6-1.3); MAGNESIUM 1.5 mg/dL (1.8-2.4); PHOSPHORUS* 3.2 mg/dL (2.5-4.9); POTASSIUM 4.7 mmol/L (3.5-5.1)
[2017-12-09 04:00] VITALS: BP 134/77
[2017-12-09 04:27] LABS: HEMATOCRIT 32.9 % (37.0-47.0); HEMOGLOBIN 11.1 gm/dL (12.0-15.0); MCHC 33.7 g/dL (28.0-37.0); MCV 97.9 fL (80.0-100.0); MPV 8.9 fl. (7.2-11.1); RBC 3.36 mil/uL (4.20-5.00); RDW-CV 14.4 % (10.5-14.5); WBC 6.3 thou/uL (4.0-11.0)
[2017-12-09 04:59] LABS: CALCIUM 8.1 mg/dL (8.5-10.1); CREATININE 0.7 mg/dL (0.6-1.3); MAGNESIUM 1.8 mg/dL (1.8-2.4); PHOSPHORUS* 2.5 mg/dL (2.5-4.9); POTASSIUM 4.2 mmol/L (3.5-5.1)
[2017-12-09 08:00] VITALS: BP 127/85
[2017-12-09 11:22] VITALS: BP 127/85
[2017-12-09 11:45] VITALS: BP 145/98
[2017-12-09 20:00] VITALS: BP 116/75
[2017-12-10] VITALS (7 sets, daily range): BP systolic 119–155; BP diastolic 83–97
--- NOTE | 2017-12-10 12:32 | CON ---
[address] [address] CONSULTATION Name: EVE LOVE Room: [address] IN .R.#: [id number] Admission: 12/06/17 Attend Phys: Morelia Lau MD Discharge: Date of : 84 Report #: [id number] THIS REPORT FOR: //name// CC: Morleia Isbell DATE OF SERVICE: 12/08/2017 REASON FOR CONSULT: Bloody stool and left lower quadrant abdominal pain. HISTORY OF PRESENT ILLNESS: This is a 37-year-old female who is well known to me as we had to perform upper endoscopy last month, which was significant for grade D esophagitis. Since then, she has been on sucralfate and double dose of PPI. She denies any significant upper GI symptoms, but she reports that what prompted her to come to hospital, was passing lot of bloody stool and having left lower quadrant abdominal pain. She has not had any further blood in the stool since hospitalization, but continues to have left lower quadrant abdominal pain. Her hemoglobin has been around 13.2. The patient has had a colonoscopy more than 10 years ago. She believes that it had negative finding. PAST MEDICAL HISTORY: Significant for history of diabetes, gastroparesis, DKA, severe esophagitis, pancreatitis, GERD, and constipation. ALLERGIES: SIGNIFICANT TO PENICILLIN AND SULFA. SOCIAL HISTORY: The patient lives at home. Denies tobacco or alcohol use. FAMILY HISTORY: Negative for GI malignancy. PHYSICAL EXAMINATION: VITAL SIGNS: Reveals blood pressure of 125/81, respirations 14, pulse 76, temperature 98.1. LUNGS: Clear. CARDIOVASCULAR: Regular. ABDOMEN: Soft, tender to palpation in the left lower quadrant. Bowel sounds are positive. LABORATORY DATA: Reveal sodium of 130, potassium 4.7, BUN is 10, creatinine 0.9, glucose 399. Lipase is 332, amylase 22. Liver function tests all within normal limits. Calcium is 8.3, magnesium 1.5, alkaline phosphatase is 162. WBC is 6.2 with hemoglobin of 11 and platelet of 182. IMAGING: CT of abdomen and pelvis was obtained, which showed low density lesion superior to spleen which may suggest artifact or splenic infarct[place] [address] CONSULTATION Name: EVE LOVE Room: [address]#: [id number] Admission: 12/06/17 Attend Phys: Morelia Lau MD Discharge: Date of : 84 Report #: [id number] moderate-sized stool in the colon. There was also evidence of hepatomegaly and thickening of the left colon. ASSESSMENT AND PLAN: The patient with left lower quadrant abdominal pain, anemia, and abnormal CT and bloody stool. We suspect colonic ischemia. We will prep the patient and perform a colonoscopy to further evaluate her symptoms and abnormal CT. The patient is agreeable with plan. <ELECTRONICALLY SIGNED> By: Robyn Cruz MD 12/10/17 1232 1323 [id number] Cruz MD /nt
[2017-12-11] VITALS: BP 126/88
[2017-12-11 04:00] VITALS: BP 135/84
[2017-12-11 08:10] VITALS: BP 157/98
[2017-12-11] MEDS ORDERED: REGLAN 10 MG TA10 MG PO (09:23)
[2017-12-11] MEDS ORDERED: LEVEMIR SUBQ (09:23)
== END 2017-12-11 11:45 | disposition home or self-care (01) | DRG 393 ==
LOC: M.ERS 23:25 → M.TBA-ER 12-06 02:23 → M.2W 12-06 02:23
PROVIDERS: Emergency Medicine Emergency Medical Services; Surgery; ADMIT Internal Medicine
PROC: 0DJD8ZZ Inspection of Lower Intestinal Tract, Via Natural or Artificial Opening Endoscopic (ICD-10-PCS; principal; 2017-12-09)
DX: K55.9 Vascular disorder of intestine, unspecified (principal); E10.10 Type 1 diabetes mellitus with ketoacidosis without coma; K86.1 Other chronic pancreatitis; E87.1 Hypo-osmolality and hyponatremia; F11.20 Opioid dependence, uncomplicated; D73.5 Infarction of spleen; E10.43 Type 1 diabetes mellitus with diabetic autonomic (poly)neuropathy; F17.210 Nicotine dependence, cigarettes, uncomplicated; K31.84 Gastroparesis; F41.9 Anxiety disorder, unspecified; K21.9 Gastro-esophageal reflux disease without esophagitis; I10 Essential (primary) hypertension; E04.9 Nontoxic goiter, unspecified; F31.9 Bipolar disorder, unspecified; D64.9 Anemia, unspecified; E66.9 Obesity, unspecified; D72.829 Elevated white blood cell count, unspecified; K59.00 Constipation, unspecified; G43.A0 Cyclical vomiting, in migraine, not intractable; K64.8 Other hemorrhoids; Z88.0 Allergy status to penicillin; Z79.4 Long term (current) use of insulin; Z88.2 Allergy status to sulfonamides; Z90.49 Acquired absence of other specified parts of digestive tract; Z90.710 Acquired absence of both cervix and uterus; Z82.3 Family history of stroke; Z68.29 Body mass index [BMI] 29.0-29.9, adult; Z79.2 Long term (current) use of antibiotics; Z79.899 Other long term (current) drug therapy